=== PATIENT | male | born 1950 | race Caucasian/White ===

== ENCOUNTER 2021-07-11 07:59 | Outpatient (REF) | payer MEDICARE, SELFPAY | END 2021-07-11 08:00 | disposition home or self-care (01) | LOC: HO.SCI 07:59 | PROVIDERS: Visit Provider Psychiatry & Neurology Neurology | DX: Z13.89 Encounter for screening for other disorder (principal) ==

== ENCOUNTER 2021-07-16 14:09 | Outpatient (REF) | payer MEDICARE, SELFPAY ==
--- NOTE | ~2021-07-16 | MR_ITS ---
MRI OF THE BRAIN WITHOUT IV CONTRAST INDICATION: MUSCLE WEAKNESS, LEG WEAKNESS COMPARISON: None available. TECHNIQUE: Multiplanar multisequence MR imaging of the brain was obtained without IV contrast. FINDINGS: There is no hydrocephalus, extra-axial surface collection, or herniation. There is global cerebral volume loss, there is moderate chronic microangiopathy, there are chronic lacunar infarcts within the deep warner nuclei bilaterally, there is a chronic lacunar infarct within the right cerebellum, there is an etat crible appearance of the basal ganglia bilaterally as the sequela of chronic hypertension. The major flow voids at the skull base are preserved. There is no acute infarct on diffusion-weighted imaging. There is no intracranial hemorrhage on the gradient recalled echo acquisition. The midline structures are normal. The cerebellar tonsils are normally positioned. The cerebellum and brainstem are normal. The craniocervical junction is normal. Osseous marrow signal intensity is homogenous. The visualized soft tissues are unremarkable. There is a retention cyst and there is mild mucosal thickening within the right maxillary sinus. There is mild mucosal thickening throughout the remaining paranasal sinuses. MR/MR head/brain wo con IMPRESSION: - There are no acute intracranial findings. - There is global cerebral volume loss, there is moderate chronic microangiopathy, there are chronic lacunar infarcts within the deep warner nuclei bilaterally, there is a chronic lacunar infarct within the right cerebellum, there is an etat crible appearance of the basal ganglia bilaterally as the sequela of chronic hypertension.
== END 2021-07-16 14:10 | disposition home or self-care (01) ==
LOC: HO.MRI 14:09
PROVIDERS: PCP Hospitalist; Visit Provider Psychiatry & Neurology Neurology
DX: M62.81 Muscle weakness (generalized) (principal)
CPT/HCPCS: 70551

== ENCOUNTER 2025-03-07 11:27 | Outpatient (AMB) | payer MEDICARE, SELFPAY ==
--- NOTE | 2025-03-07 11:29 | MHC.OFFVIS ---
Vital Signs 03/07/25 11:34 Height 5 ft 10 in Weight 197 lb BMI 28.3 BP 126/80 Blood Pressure Location Rt brachial Position Sitting Pulse 79 Pulse Source Pulse Oximeter Pulse Oximetry (%) 98 Oxygen Delivery Method Room Air Intake Visit Reasons: ENP-Neuropathy Intake Note: patient referred by Dr. Betancourt for large fiber neuropathy Allergies erythromycin base Allergy (Severe, Verified 03/07/25 11:35) Anaphylaxis Penicillins Allergy (Severe, Verified 03/07/25 11:35) Anaphylaxis sulfadiazine Allergy (Severe, Verified 03/07/25 11:35) Anaphylaxis tamsulosin [From Flomax] Allergy (Severe, Verified 03/07/25 11:35) Difficulty Breathing Medication List - Last Reconciled 03/07/25 by Carli Chaudhary MD ascorbic acid (vitamin C) 250 mg PO DAILY cholecalciferol (vitamin D3) 10 mcg PO DAILY metoprolol succinate ER 100 mg PO DAILY metoprolol succinate ER 50 mg PO DAILY oxycodone 5 mg PO BID PRN vitamin J58-ecayb acid 500-400 mcg 1 tab PO DAILY warfarin mg PO HPI Comments Details: 74y/o male with multiple medical issues comes for opinion regarding his neuropathy.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 He started feeling weak in his legs about 10-12 years ago and has progressed since then. He also has numbness and tingling in lower extremities started 10 years ago and has progressed significantly . He used to be very active but now his mobility is limited due to his weakness and numbness. he also has chronic back issues but manageable. he reports poor balance , pain in his right lateral leg , numbness, burning pain, muscle tightness. His left leg is weaker than right leg . He can only walk with walker . His 2 sisters and brother has neuropathy. He denies any neck pain . He was seen at [facility] and had extensive evaluation - 2-3 years ago .He has Protien S deficiency . 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 Lumbar spondylosis Protein C deficiency Anticoagulant long-term use Hepatitis C antibody positive Venous insufficiency of lower extremity Protein S deficiency Bilateral leg weakness HTN (hypertension) Dvt femoral (deep venous thrombosis) Chronic pulmonary embolism Chronic low back pain Central stenosis of spinal canal Prostate CA Surgical History (Updated 03/07/25 @ 11:36 by VILMA Delgado) History of hip replacement Hx of LASIK H/O prostatectomy Hx of colonoscopy Family History Sister Alcoholism Social History Alcohol intake: former Patient Tobacco Use Status: Former Tobacco user Physical Exam Vital Signs: Last Vital Signs Pulse 79 03/07/25 11:34 BP 126/80 03/07/25 11:34 Pulse Ox 98 03/07/25 11:34 Oxygen Delivery Method Room Air 03/07/25 11:34 BMI result Body Mass Index 28.3 Const General: cooperative and comfortable Nutritional Appearance: average body habitus Orientation/consciousness: patient oriented x3 Limitations: physical limitations Eyes Pupils: Equal, round and reactive pupils present Neuro Other: Left leg weakness - hip flexion - 2-3/5 knee extension- 2-3/5 Jason Foot drop Right leg 4/5 Normal tone Gait-limited with walker, circumducts left leg General: patient oriented x3, tone normal and moves all extremities Cranial nerves: Yes Facial sensation intact/muscles of mastication intact, Yes Equal, round and reactive pupils present, Yes Bilaterally intact EOM present, Yes Nystagmus not present, Yes Normal facial strength present, Yes Midline tongue present and Yes Ability to bilaterally elevate shoulders present Cognition (Neuro): normal cognition Deep tendon reflexes (DTR's): Right triceps reflex intensity grade: 1+, Left triceps reflex intensity grade: 1+, Rt Biceps (C5, C6): 1+, Left biceps reflex intensity grade: 1+, Right brachioradialis reflex intensity grade: 1+, Left brachioradialis reflex intensity grade: 1+, Right patellar reflex intensity grade: 1+ and Left patellar reflex intensity grade: 1+ Psych Appearance: grossly normal Results Reviewed Results Reviewed: MRI C spine 09/20/23 Stable appearance of spinal cord with scattered T2 hyperintense foci - no enhancement. MRI Brain 2020-There are no acute intracranial findings. - There is global cerebral volume loss, there is moderate chronic microangiopathy, there are chronic lacunar infarcts within the deep warner nuclei bilaterally, there is a chronic lacunar infarct within the right cerebellum, there is an etat crible appearance of the basal ganglia bilaterally as the sequela of chronic hypertension. MRI spine 2021 Multifocal poorly defined high T2 signal in cervical and thoracic cord ( thoracic cord similar to 202) Mild jultilevel deg changes Assessment & Plan Assessment & Plan (1) Axonal sensorimotor neuropathy: Code(s): G62.89 - Other specified polyneuropathies Category: Medical (2) Bilateral leg weakness: Code(s): R29.898 - Other symptoms and signs involving the musculoskeletal system Category: Medical (3) Lumbar spondylosis: Code(s): M47.816 - Spondylosis without myelopathy or radiculopathy, lumbar region Category: Medical (4) Demyelinating disease of the spinal cord: Comment: was evaluated at [facility] Code(s): G37.9 - Demyelinating disease of central nervous system, unspecified Category: Medical Plan I suggested to wear AFOs to help with his foot drop and gait PT for gait Notes form [facility] for review MRI s reviewed in detail. No demyelinating change sin the brain but change sin cervicla and thoracic cord- no active lesions. Orders: Orders PT Evaluation and Treatment 03/07/25 G62.89 - Other specified polyneuropathies, M47.816 - Spondylosis without myelopathy or radiculopathy, lumbar region, R29.898 - Other symptoms and signs involving the musculoskeletal system Coding Level of Care Code New Pt Level 4 (20985) Complex EM visit Add On G2211 Diagnoses Axonal sensorimotor neuropathy G62.89 Bilateral leg weakness R29.898 Lumbar spondylosis M47.816 Demyelinating disease of the spinal cord G37.9
[2025-03-07 11:34] VITALS: BP 126/80; PULSE 79; O2SAT 98; BMI 28.3
--- OUTSIDE RECORDS SUMMARY | 2025-03-07 13:49 | XMS_ITS | Clinical Summary ---
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 06/09/2022 Active metoprolol succinate XL (TOPROL XL) 100 mg tablet Take 100 mg by mouth daily. 07/31/2022 Active Social History Tobacco Use Types Packs/Day Years Used Date Smoking Tobacco: Never Assessed Sex and Gender Information Value Date Recorded Sex Assigned at Male 09/18/2022 12:16 PM EDT Legal Sex Male 3:31 PM EDT Gender Identity Male 09/18/2022 12:16 PM EDT Sexual Orientation Straight 09/18/2022 12 :16 PM EDT Last Filed Vital Signs Vital Sign Reading Time Taken Comments Blood Pressure 133/95 09/15/2022 8:57 AM EDT Pulse 73 09/15/2022 8:57 AM EDT Temperature - - Respiratory Rate - - Oxygen Saturation - - Inhaled Oxygen Concentration - - Weight - - Height - - Body Mass Index - - Plan of Treatment Health Maintenance Due Date Last Done Comments Hepatitis C Screening 1950 Medicare AWV 1951 DTaP,Tdap,and Td Vaccines (1 - Tdap) 1970 Pneumococcal Vaccine: 50+ Years (1 of 1 - PCV) 1998 Zoster Vaccines (1 of 2) 1998 RSV Vaccine (60+ years old and patients) (1 - 1-dose 75+ series) 2023 COVID-19 Vaccine (2023-2 5 season) 2024 09/09/2021, 02/04/2021, 01/07/2021 Alcohol/Substance Use Screening 11/16/2024 Depression Screening and Follow-Up 11/16/2024 Health Care Proxy Review 11/16/2024 Social Drivers of Health Annual Screening 11/16/2024 Influenza Vaccine (Season Ended) 2025 Hepatitis B Vaccines Aged Out No long er eligible based on patient's age to complete this topic Insurance MEDICARE [facility] Care Teams 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
--- OUTSIDE RECORDS SUMMARY | 2025-03-07 13:49 | XMS_ITS | Referral Summary ---
Author Organization [facility] Address [address] [place] [address] Care Team Providers Care Fish Hatchery Man Name Role Phone Lakhwinder Betancourt Primary Care [...] Mass Index - - Plan of Treatment Not on file Insurance MEDICARE [id number] M[facility] SUPP Care Teams Fish Hatchery Man Relationship Specialty Start Date End Date Lakhwinder Betancourt [address] [place] [phone] PCP - General Family Medicine 08/20/22
--- OUTSIDE RECORDS SUMMARY | 2025-03-07 13:49 | XMS_ITS | Clinical Summary ---
Author Organization [facility] Address [address] [place] [address] Care Team Providers Care Well Puller Head Name Role Phone Yumiko MEJIA MD, Ignacio Up Primary Care Provider [phone]- [phone] Allergies Active Allergy Reactions Criticality Noted Date Comments Penicillins 12/13/2018 Sulfa Antibiotics 12/13/2018 Medications Medication Sig Dispensed Refills Start Date End Date Status metoprolol succinate (TOPROL-XL) 24 hr tablet 50 mg Take 150 mg by mouth daily. 0 Active warfarin (COUMADIN) 7.5 MG tablet Take 7.5 mg by mouth daily. 0 Active Active Problems No known active problems Family History Medical History Relation Name Comments Cancer Mother breast and live r Cancer Sister breast Relation Name Status Comments Brother Alive Mother Sister Alive Social History Tobacco Use Types Packs/Day Years Used Date Smoking Tobacco: Former Smokeless Tobacco: Never Alcohol Use Standard Drinks/Week Comments No 0 (1 standard drink = 0.6 oz pur e alcohol) Sex and Gender Information Value Date Recorded Sex Assigned at Not on file Gender Identity Not on file Sexual Orientation Not on file Last Filed Vital Signs Vital Sign Reading Time Taken Comments Blood Pressure 135/88 12/13/2018 2:33 PM EST Pulse 66 12/13/2018 2:33 PM EST Temperature 37.2 ??C (99 ??F) 12/13/2018 2:33 PM EST Respiratory Rate - - Oxygen Saturation - - Inhaled Oxygen Concentration - - Weight 96.2 kg (212 lb) 12/13/2018 2:33 PM EST Height 177.8 cm (5' 10 ) 12/13/2018 2:33 PM EST Body Mass Index 30.42 12/13/2018 2:33 PM EST Plan of Treatment Health Maintenance Due Date Last Done Comments Hepatitis C Screening 1950 COVID-19 Vaccine (#1) 1948 Depression Screening 1960 Preventative Health Evaluation 1966 DTap / Tdap / Td (1 - Tdap) 1967 Shingrix-Zoster Vaccine (1 of 2) 1998 Fall Risk Assessment 2013 Pneumococcal Vaccine (1 of 1 - PCV) 2013 RSV Adult > 60+ Yrs or Pregn ant (1 - 1-dose 75+ series) 2023 Influenza Vaccine (#1) 2024 Hepatitis B Vaccines Aged Out No long er eligible based on patient's age to complete this topic RSV Ped < 20 months Aged Out No longe r eligible based on patient's age to complete this topic Care Teams Well Puller Head Relationship Specialty Start Date End Date Ignacio Calderon II, MD [address] [place] [address] PCP - General Internal Medicine 12/03/18
== END 2025-03-07 12:23 | disposition home or self-care (01) ==
LOC: HO.HSMS 11:28
PROVIDERS: PCP Hospitalist; Visit Provider Psychiatry & Neurology Neurology
DX: G62.89 Other specified polyneuropathies (principal); R29.898 Other symptoms and signs involving the musculoskeletal system; M47.816 Spondylosis without myelopathy or radiculopathy, lumbar region; G37.9 Demyelinating disease of central nervous system, unspecified
CPT/HCPCS: 99204; G2211

== ENCOUNTER → 2025-03-07 11:27 | Outpatient (BNVA) | payer MEDICARE, SELFPAY | PROVIDERS: PCP Hospitalist; Visit Provider Psychiatry & Neurology Neurology | DX: G62.89 Other specified polyneuropathies (principal); G37.9 Demyelinating disease of central nervous system, unspecified; R29.898 Other symptoms and signs involving the musculoskeletal system; M47.816 Spondylosis without myelopathy or radiculopathy, lumbar region | CPT/HCPCS: 99202 ==

== ENCOUNTER 2025-05-09 14:14 | Outpatient (AMB) | payer MEDICARE, SELFPAY ==
--- NOTE | 2025-05-09 14:24 | MHC.OFFVIS ---
Vital Signs 05/09/25 14:30 Height 5 ft 10 in Weight 197 lb BMI 28.3 BP 154/98 H Blood Pressure Location Rt brachial Position Sitting Pulse 67 Pulse Source Pulse Oximeter Pulse Oximetry (%) 98 Oxygen Delivery Method Room Air Intake Visit Reasons: 2 mo follow up Intake Note: Patient following up 2 months. 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 He could not do PT or use AFO- He started feeling weak in his legs about 10-12 years ago and has progressed since then. He also has numbness and tingling in lower extremities started 10 years ago and has progressed significantly . He used to be very active but now his mobility is limited due to his weakness and numbness. he also has chronic back issues but manageable. he reports poor balance , pain in his right lateral leg , numbness, burning pain, muscle tightness. His left leg is weaker than right leg . He can only walk with walker . His 2 sisters and brother has neuropathy. He denies any neck pain . He was seen at [facility] and had extensive evaluation - 2-3 years ago .He has Protien S deficiency . 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 Lumbar spondylosis Protein C deficiency Anticoagulant long-term use Hepatitis C antibody positive Venous insufficiency of lower extremity Protein S deficiency Bilateral leg weakness HTN (hypertension) Dvt femoral (deep venous thrombosis) Chronic pulmonary embolism Chronic low back pain Central stenosis of spinal canal Prostate CA Surgical History History of hip replacement Hx of LASIK H/O prostatectomy Hx of colonoscopy Family History Sister Alcoholism Social History Alcohol intake: former Patient Tobacco Use Status: Former Tobacco user Physical Exam Vital Signs: Last Vital Signs Pulse 67 05/09/25 14:30 BP 154/98 H 05/09/25 14:30 Pulse Ox 98 05/09/25 14:30 Oxygen Delivery Method Room Air 05/09/25 14:30 BMI result Body Mass Index 28.3 Const General: cooperative and comfortable Nutritional Appearance: average body habitus Orientation/consciousness: patient oriented x3 Limitations: physical limitations Eyes Pupils: Equal, round and reactive pupils present Neuro Other: Left leg weakness - hip flexion - 2-3/5 knee extension- 2-3/5 Jason Foot drop Right leg 4/5 Normal tone Gait-limited with walker, circumducts left leg General: patient oriented x3, tone normal and moves all extremities Cranial nerves: Yes Facial sensation intact/muscles of mastication intact, Yes Equal, round and reactive pupils present, Yes Bilaterally intact EOM present, Yes Nystagmus not present, Yes Normal facial strength present, Yes Midline tongue present and Yes Ability to bilaterally elevate shoulders present Cognition (Neuro): normal cognition Psych Appearance: grossly normal Assessment & Plan Assessment & Plan (1) Axonal sensorimotor neuropathy: Code(s): G62.89 - Other specified polyneuropathies Category: Medical (2) Bilateral leg weakness: Code(s): R29.898 - Other symptoms and signs involving the musculoskeletal system Category: Medical (3) Lumbar spondylosis: Code(s): M47.816 - Spondylosis without myelopathy or radiculopathy, lumbar region Category: Medical (4) Demyelinating disease of the spinal cord: Comment: was evaluated at [facility] Code(s): G37.9 - Demyelinating disease of central nervous system, unspecified Category: Medical Plan I suggested to wear AFOs to help with his foot drop and gait PT for gait Seated exercises Notes form [facility] for review MRI s reviewed in detail. No demyelinating change sin the brain but change sin cervicla and thoracic cord- no active lesions. Coding Level of Care Code Est Pt Level 4 (50725) Complex EM visit Add On G2211 Diagnoses Axonal sensorimotor neuropathy G62.89 Bilateral leg weakness R29.898 Lumbar spondylosis M47.816 Demyelinating disease of the spinal cord G37.9
[2025-05-09 14:30] VITALS: BP 154/98; PULSE 67; O2SAT 98; BMI 28.3
--- OUTSIDE RECORDS SUMMARY | 2025-05-09 17:21 | XMS_ITS | Clinical Summary ---
Author Organization [facility] Address [address] [place] [address] Care Team Providers Care Air Moving Technician Name Role Phone Yumiko MEJIA MD, Ignacio Up Primary Care Provider [phone]- [phone] Allergies Active Allergy Reactions Criticality Noted Date [...] 66 12/13/2018 2:33 PM EST Temperature 37.2 C (99 F) 12/13/2018 2:33 PM EST Respiratory Rate - [...] - 1-dose 75+ series) 2023 Influenza Vaccine (Season Ended) 2025 Hepatitis B Vaccines Aged Out No long er eligible based on patient's age to complete this topic RSV Ped < 20 months Aged Out No longe r eligible based on patient's age to complete this topic Care Teams Air Moving Technician Relationship Specialty Start Date End Date Ignacio Calderon II, MD [address] [place] [address] PCP - General Internal Medicine 12/03/18
== END 2025-05-09 15:06 | disposition home or self-care (01) ==
LOC: HO.HSMS 14:14
PROVIDERS: PCP Hospitalist; Visit Provider Psychiatry & Neurology Neurology
DX: G62.89 Other specified polyneuropathies (principal); R29.898 Other symptoms and signs involving the musculoskeletal system; M47.816 Spondylosis without myelopathy or radiculopathy, lumbar region; G37.9 Demyelinating disease of central nervous system, unspecified
CPT/HCPCS: 99214; G2211

== ENCOUNTER → 2025-05-09 14:14 | Outpatient (BNVA) | payer MEDICARE, SELFPAY | PROVIDERS: PCP Hospitalist; Visit Provider Psychiatry & Neurology Neurology | DX: G62.89 Other specified polyneuropathies (principal); G37.9 Demyelinating disease of central nervous system, unspecified; R29.898 Other symptoms and signs involving the musculoskeletal system; M47.816 Spondylosis without myelopathy or radiculopathy, lumbar region | CPT/HCPCS: 99212 ==

== ENCOUNTER 2025-08-18 12:53 | Outpatient (AMB) | payer MEDICARE, SELFPAY ==
--- NOTE | 2025-08-18 13:07 | MHC.OFFVIS ---
Vital Signs 08/18/25 13:08 Height 5 ft 10 in Weight 196 lb BMI 28.1 BP 148/90 H Blood Pressure Location Rt brachial Position Sitting Pulse 80 Pulse Source Pulse Oximeter Pulse Oximetry (%) 98 Oxygen Delivery Method Room Air Intake Visit Reasons: Follow up Intake Note: Follow up Axonal sensorimotor neuropathy, Bilateral leg weakness Clinical Research Management Associate Required: No Accompanied by: Spouse Allergies erythromycin base Allergy (Severe, Verified 08/18/25 13:08) Anaphylaxis Penicillins Allergy (Severe, Verified 08/18/25 13:08) Anaphylaxis sulfadiazine Allergy (Severe, Verified 08/18/25 13:08) Anaphylaxis tamsulosin (From Flomax) Allergy (Severe, Verified 08/18/25 13:08) Difficulty Breathing Medication List - Last Reconciled 08/18/25 by Carli Chaudhary MD ascorbic acid (vitamin C) 250 mg PO DAILY cholecalciferol (vitamin D3) 10 mcg PO DAILY metoprolol succinate ER 100 mg PO DAILY metoprolol succinate ER 50 mg PO DAILY oxycodone 5 mg PO BID PRN vitamin O22-zomxv acid 500-400 mcg 1 tab PO DAILY warfarin mg PO HPI Comments Details: 75y/o male with multiple medical issues comes for follow up of his neuropathy.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 No recent falls. History from last visit- He could not do PT or use AFO- He started feeling weak in his legs about 10-12 years ago and has progressed since then. He also has numbness and tingling in lower extremities started 10 years ago and has progressed significantly . He used to be very active but now his mobility is limited due to his weakness and numbness. he also has chronic back issues but manageable. he reports poor balance , pain in his right lateral leg , numbness, burning pain, muscle tightness. His left leg is weaker than right leg . He can only walk with walker . His 2 sisters and brother has neuropathy. He denies any neck pain . He was seen at [facility] and had extensive evaluation - 2-3 years ago .He has Protien S deficiency . 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 Lumbar spondylosis Protein C deficiency Anticoagulant long-term use Hepatitis C antibody positive Venous insufficiency of lower extremity Protein S deficiency Bilateral leg weakness HTN (hypertension) Dvt femoral (deep venous thrombosis) Chronic pulmonary embolism Chronic low back pain Central stenosis of spinal canal Prostate CA Surgical History History of hip replacement Hx of LASIK H/O prostatectomy Hx of colonoscopy Family History Sister Alcoholism Social History Alcohol intake: former Patient Tobacco Use Status: Former Tobacco user Physical Exam Vital Signs: Last Vital Signs Pulse 80 08/18/25 13:08 BP 148/90 H 08/18/25 13:08 Pulse Ox 98 08/18/25 13:08 Oxygen Delivery Method Room Air 08/18/25 13:08 BMI result Body Mass Index 28.1 Const General: cooperative and comfortable Nutritional Appearance: average body habitus Orientation/consciousness: patient oriented x3 Limitations: physical limitations Eyes Pupils: Equal, round and reactive pupils present Neuro Other: Left leg weakness - hip flexion - 2-3/5 knee extension- 2-3/5 Jason Foot drop Right leg 4/5 Normal tone Gait-limited with walker, circumducts left leg General: patient oriented x3, tone normal and moves all extremities Cranial nerves: Yes Facial sensation intact/muscles of mastication intact, Yes Equal, round and reactive pupils present, Yes Bilaterally intact EOM present, Yes Nystagmus not present, Yes Normal facial strength present, Yes Midline tongue present and Yes Ability to bilaterally elevate shoulders present Cognition (Neuro): normal cognition Psych Appearance: grossly normal Assessment & Plan Assessment & Plan (1) Axonal sensorimotor neuropathy: Code(s): G62.89 - Other specified polyneuropathies Category: Medical (2) Bilateral leg weakness: Code(s): R29.898 - Other symptoms and signs involving the musculoskeletal system Category: Medical (3) Lumbar spondylosis: Code(s): M47.816 - Spondylosis without myelopathy or radiculopathy, lumbar region Category: Medical (4) Demyelinating disease of the spinal cord: Comment: was evaluated at [facility] Code(s): G37.9 - Demyelinating disease of central nervous system, unspecified Category: Medical Plan I suggested to wear AFOs to help with his foot drop and gait Home PT for gait Seated exercises MRI s reviewed in detail. No demyelinating changes in the brain but changes in cervical and thoracic cord- no active lesions. Orders: [facility]errals [facility] Referral G37.9 - Demyelinating disease of central nervous system, unspecified, G62.89 - Other specified polyneuropathies, M47.816 - Spondylosis without myelopathy or radiculopathy, lumbar region, R29.898 - Other symptoms and signs involving the musculoskeletal system Coding Level of Care Code Est Pt Level 4 (82287) Diagnoses Axonal sensorimotor neuropathy G62.89 Bilateral leg weakness R29.898 Lumbar spondylosis M47.816 Demyelinating disease of the spinal cord G37.9
[2025-08-18 13:08] VITALS: BP 148/90; PULSE 80; O2SAT 98; BMI 28.1
--- OUTSIDE RECORDS SUMMARY | 2025-08-18 13:20 | XMS_ITS | Clinical Summary ---
Author Organization [facility] Address [address] [place] [address] Care Team Providers Care Material Reprocessing Associate Name Role Phone Yumiko MEJIA MD, Ignacio Up Primary Care Provider [phone] Allergies Active Allergy Reactions Criticality Noted Date [...] 1-dose 75+ series) 2023 Influenza Vaccine (#1) 2025 Hepatitis B Vaccines Aged Out No long er eligible based on patient's age to complete this topic RSV Ped < 20 months Aged Out No longe r eligible based on patient's age to complete this topic Care Teams Material Reprocessing Associate Relationship Specialty Start Date End Date Ignacio Calderon II, MD [address] [place] [address] PCP - General Internal Medicine 12/03/18
--- OUTSIDE RECORDS SUMMARY | 2025-08-18 13:20 | XMS_ITS | Clinical Summary ---
Author Organization [facility] Address [address] [place] [address] Care Team Providers Care Generator Mechanic Name Role Phone Lakhwinder Betancourt Primary Care [...] patients) (1 - 1-dose 75+ series) 2023 Alcohol/Substance Use Screening 11/16/2024 Depression Screening and Follow-Up 11/16/2024 Health Care Proxy Review 11/16/2024 Social Drivers of Health Annual Screening 11/16/2024 COVID-19 Vaccine (4 - 2024-2 6 season) 2025 09/09/2021, 02/04/2021, 01/07/2021 Influenza Vaccine (#1) 2025 Hepatitis B Vaccines Aged Out No long er eligible based on patient's age to complete this topic Insurance MEDICARE [facility] Care Teams Generator Mechanic Relationship Specialty Start Date End Date Lakhwinder Betancourt [address] [place] [id number] PCP - General Family Medicine 08/20/22
== END 2025-08-18 13:50 | disposition home or self-care (01) ==
LOC: HO.HSMS 12:53
PROVIDERS: PCP Hospitalist; Visit Provider Psychiatry & Neurology Neurology
DX: G62.89 Other specified polyneuropathies (principal); R29.898 Other symptoms and signs involving the musculoskeletal system; M47.816 Spondylosis without myelopathy or radiculopathy, lumbar region; G37.9 Demyelinating disease of central nervous system, unspecified
CPT/HCPCS: 99214

== ENCOUNTER → 2025-08-18 12:53 | Outpatient (BNVA) | payer MEDICARE, SELFPAY | PROVIDERS: PCP Hospitalist; Visit Provider Psychiatry & Neurology Neurology | DX: G62.89 Other specified polyneuropathies (principal); G37.9 Demyelinating disease of central nervous system, unspecified; R29.898 Other symptoms and signs involving the musculoskeletal system; M47.816 Spondylosis without myelopathy or radiculopathy, lumbar region | CPT/HCPCS: 99212 ==